=== PATIENT | female | born 1960 | race Native Hawaiian/Other Pacific Islander ===

== ENCOUNTER 2020-10-08 07:40 | Emergency (ER) | payer OTHER ==
[~2020-10-08] VITALS: Ht 165.1 cm; Wt 90.7 kg
== END 2020-10-08 09:52 | disposition expired ==
LOC: ED 07:42
PROC: 5A12012 Performance of Cardiac Output, Single, Manual (ICD-10-PCS; principal; 2020-10-08)
DX: I46.9 Cardiac arrest, cause unspecified (principal)
CPT/HCPCS: 92950